=== PATIENT | male | born 1965 | race Hispanic/Latino ===

== ENCOUNTER 2018-01-19 22:29 | Emergency (ER) | payer OTHER ==
--- NOTE | 2018-01-19 23:15 | RAD ---
PA AND LATERAL CHEST: HISTORY: Cough x1 month. FINDINGS: Heart size appears slightly enlarged. Mediastinal structures are unremarkable. Lungs are clear of a ny infiltrates. There is subsegmental atelectasis in the bases. IMPRESSION: Suggestion of some minimal cardiomegaly. The film is of less than optimal inspiration. No signs of any focal infiltrate. Minimal linear atelectasis is seen in the lung bases, probably on the basis of poor inspiration. POS: LITA
[2018-01-19 23:17] LABS: #Basophils 0.1 thou/uL (0.0-0.2); #Eosinphils 0.5 thou/uL (0.0-0.7); #Lymphocytes 3.3 thou/uL (1.20-3.40); #Monocytes 0.6 thou/uL (0.11-0.59); #Neutrophils 4.2 thou/uL (1.40-6.50); %Basophils 1.6 % (0.0-1.0); %Eosinophils 5.5 % (0.0-10.0); %Lymphocytes 37.9 % (21.0-51.0); %Monocytes 6.5 % (0.0-10.0); %Neutrophils 48.6 % (42.0-75.0); Mean Corpuscular HGB CONC 35.6 g/dL (32.0-36.0); Mean Corpuscular Hemoglobin 33.2 pg (27.0-31.0); Mean Corpuscular Volume 93.3 fL (78.0-98.0); Mean Platelet Volume 7.4 fL (7.4-10.4); Platelet Count 278 thou/uL (130-400); RBC Distribution Width 10.8 % (11.5-14.5); Red Blood Cell (RBC) Count 5.43 mill/uL (4.70-6.10); White Blood Cell (WBC) Count 8.6 thou/uL (4.8-10.8)
[2018-01-19 23:22] LABS: ALT (SGPT) 26 U/L (8-55); AST (SGOT) 25 U/L (5-34); Albumin 4.5 g/dL (3.5-5.0); Alcohol 246 mg/dL (Less than 10); Alkaline Phosphatase 105 U/L (40-150); Anion Gap 16 mmol/L (10-20); BUN (Urea Nitrogen) 8 mg/dL (8.4-25.7); Bilirubin, Total 0.6 mg/dL (0.2-1.2); Calc. Creatinine Clearance 0 mL/min (70-130); Calcium 9.1 mg/dL (7.8-10.44); Carbon Dioxide 23 mmol/L (22-29); Chloride 106 mmol/L (98-107); Estimated GFR-MDRD Greater than 90; Globulin 3.4 g/dL (2.4-3.5); Glucose 126 mg/dL (70-105); Potassium 3.4 mmol/L (3.5-5.1); Protein, Total 7.9 g/dL (6.0-8.3); Sodium 142 mmol/L (136-145)
[2018-01-19 23:29] LABS: CKMB 4.1 ng/mL (0-6.6); Troponin I Less than 0.010 ng/mL (< 0.028)
== END 2018-01-19 23:43 | disposition home or self-care (01) ==
LOC: MADERS 22:29
DX: F10.129 Alcohol abuse with intoxication, unspecified (principal); R09.81 Nasal congestion; Z79.899 Other long term (current) drug therapy
CPT/HCPCS: 36415; 71046; 80053; 80307; 82553; 83880; 84484; 85025; 93005